=== PATIENT | male | born 1985 | race Caucasian/White ===

== ENCOUNTER 2016-12-07 00:04 | Emergency (ER) | payer BC ==
[~2016-12-07] VITALS: Ht 180.3 cm; Wt 86.5 kg
[2016-12-07 00:06] VITALS: TEMP 37.1; Ht 180.3 cm; Wt 86.5 kg
[2016-12-07] MEDS ORDERED: SODIUM CHLORIDE 0.9% 1000ML 1,000 ML IV STA (00:25)
--- NOTE | 2016-12-07 00:27 | EMERGENCY ROOM VISIT NOTE ---
History Report prepared by Garrickibe: Xiao Briggs Under the Supervision of: Dr. Edmund Harding M.D. First contact with patient: 00:16 Chief Complaint: CHEST PAIN Stated Complaint: CHEST PAIN,PAIN ON RIGHT SIDE,LWR BACK,KIDNEY History of Present Illness The patient is a 31 year old male who presents to the Emergency Room with complaints of right upper flank/RUQ pain. Began this morning. Minimal pain at rest though with movement of deep inspiration worse. Tylenol earlier improvement in symptoms. No nausea, vomiting, fevers, chills, syncope, swelling , rash, nor other symptoms. No history of PE/DVT, no family history, no recent surgeries, though he did travel to [place] 2 months ago. Admits Pneumonia 6-7 yrs ago without hospitalization. 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 Source of History: patient Onset: this morning Position: chest Timing: constant Modifying Factors (Worsening): breathing (deep), other (laying) Associated Symptoms: No nausea, No vomiting Note: pt denies passing out, calf pain, or swelling in legs Review of Systems See HPI for pertinent positives & negatives. A total of 10 systems reviewed and were otherwise negative. Past Medical & Surgical Medical Problems: (1) Pneumonia (2) Pneumonia Family History no pertinent family history stated Social History Smoking Status: Never Smoker Occupation Status: employed Current/Historical Medications Scheduled PRN Acetaminophen (Tylenol), 1,000 MG PO BID PRN for Pain Allergies Coded Allergies: No Known Allergies (Unverified , 12/07/16) Physical Exam Vital Signs Date Time Temp Pulse Resp B/P (MAP) Pulse Ox O2 Delivery O2 Flow Rate FiO2 12/07/16 05:05 68 18 127/78 99 12/07/16 04:20 64 17 113/77 99 Room Air 12/07/16 01:51 60 14 126/70 97 Room Air 12/07/16 00:53 72 12/07/16 00:30 Room Air 12/07/16 00:06 37.1 77 18 143/94 98 Room Air Physical Exam GENERAL: Patient is anxious appearing and in minimal distress. HEENT: No acute trauma, normocephalic atraumatic, mucous membranes moist, no nasal congestion, no scleral icterus. NECK: No stridor, no adenopathy, no meningismus, trachea is midline. LUNGS: No dyspnea. Clear to auscultation and equal bilaterally. No wheeze, no rhonchi. HEART: Regular rate and rhythm. No murmurs, rubs, gallops appreciated. ABDOMEN: Soft, nontender, bowel sounds positive, no masses appreciated, no peritonitis. BACK: No midline tenderness, vague right CVA ttp. EXTREMITIES: Normal motion all extremities, no cyanosis, no edema. NEUROLOGIC: Alert and oriented, no acute motor or sensory deficits, no focal weakness, cranial nerves grossly intact. SKIN: No rash, no jaundice, no diaphoresis. Medical Decision & Procedures ER Provider Diagnostic Interpretation: Radiology results and stated below per my review and radiologist interpretation: CHEST TWO VIEW X ray results are stated below per my interpretation: Chest: 1 view: No infiltrate, no effusion, normal cardiac border. US RUQ Mild hepatomegaly. Slightly dense liver may be fatty. Maybe trace perihepatic fluid. No cholelithiasis or acute cholecystitis. No biliary obstruction. Pancreas unremarkable. Right kidney unremarkable. Radiologist: Xavier Balderas Laboratory Results 12/07/16 00:20 Red Blood Count 5.05, Mean Corpuscular Volume 89.1, Mean Corpuscular Hemoglobin 32.5, Mean Corpuscular Hemoglobin Concent 36.4, Mean Platelet Volume 10.6, Neutrophils (%) (Auto) 57.3, Lymphocytes (%) (Auto) 29.3, Monocytes (%) (Auto) 11.0, Eosinophils (%) (Auto) 1.9, Basophils (%) (Auto) 0.3, Neutrophils # (Auto ) 5.96, Lymphocytes # (Auto) 3.05, Monocytes # (Auto) 1.14, Eosinophils # (Auto ) 0.20, Basophils # (Auto) 0.03 12/07/16 00:20 Test 12/07/16 00:20 12/07/16 00:25 White Blood Count 10.40 K/uL (4.8-10.8) Red Blood Count 5.05 M/uL (4.7-6.1) Hemoglobin 16.4 g/dL (14.0-18.0) Hematocrit 45.0 % (42-52) Mean Corpuscular Volume 89.1 fL (80-100) Mean Corpuscular Hemoglobin 32.5 pg (25-34) Mean Corpuscular Hemoglobin Concent 36.4 g/dl (32-36) Platelet Count 191 K/uL (130-400) Mean Platelet Volume 10.6 fL (7.4-10.4) Neutrophils (%) (Auto) 57.3 % Lymphocytes (%) (Auto) 29.3 % Monocytes (%) (Auto) 11.0 % Eosinophils (%) (Auto) 1.9 % Basophils (%) (Auto) 0.3 % Neutrophils # (Auto) 5.96 K/uL (1.4-6.5) Lymphocytes # (Auto) 3.05 K/uL (1.2-3.4) Monocytes # (Auto) 1.14 K/uL (0.11-0.59) Eosinophils # (Auto) 0.20 K/uL (0-0.5) Basophils # (Auto) 0.03 K/uL (0-0.2) RDW Standard Deviation 40.4 fL (36.4-46.3) RDW Coefficient of Variation 12.6 % (11.5-14.5) Immature Granulocyte % (Auto) 0.2 % Immature Granulocyte # (Auto) 0.02 K/uL (0.00-0.02) D-Dimer 220 ug/L FEU (0-500) Anion Gap 4.0 mmol/L (3-11) Est Creatinine Clear Calc Drug Dose 117.7 ml/min Estimated GFR () 121.4 Estimated GFR (Non- 104.8 BUN/Creatinine Ratio 15.3 (10-20) Calcium Level 9.3 mg/dl (8.5-10.1) Total Bilirubin 1.2 mg/dl (0.2-1) Direct Bilirubin 0.2 mg/dl (0-0.2) Aspartate Amino Transf (AST/SGOT) 11 U/L (15-37) Alanine Aminotransferase (ALT/SGPT) 25 U/L (12-78) Alkaline Phosphatase 67 U/L (45-117) Total Protein 8.3 gm/dl (6.4-8.2) Albumin 4.3 gm/dl (3.4-5.0) Lipase 340 U/L (73-393) Urine Color YELLOW Urine Appearance CLEAR (CLEAR) Urine pH 7.0 (4.5-7.5) Urine Specific [place] 1.021 (1.000-1.030) Urine Protein NEG (NEG) Urine Glucose (UA) NEG (NEG) Urine Ketones NEG (NEG) Urine Occult Blood NEG (NEG) Urine Nitrite NEG (NEG) Urine Bilirubin NEG (NEG) Urine Urobilinogen NEG (NEG) Urine Leukocyte Esterase NEG (NEG) Urine WBC (Auto) 1-5 /hpf (0-5) Urine RBC (Auto) 0-4 /hpf (0-4) Urine Hyaline Casts (Auto) 0 /lpf (0-5) Urine Epithelial Cells (Auto) 0-5 /lpf (0-5) Urine Bacteria (Auto) NEG (NEG) Laboratory results as reviewed by me. Medications Administered Medications (Trade) Dose Ordered Sig/Nafisa Route Start Time Stop Time Status Last Admin Dose Admin Sodium Chloride 1,000 ml @ 999 mls/hr Q1H1M STAT IV 12/07/16 00:25 12/07/16 01:25 DC 12/07/16 00:41 999 MLS/HR Ketorolac Tromethamine (Toradol Inj) 30 mg NOW STAT IV 12/07/16 04:52 12/07/16 04:53 DC 12/07/16 05:02 30 MG ED Course 0007: The patient was evaluated in room A4B. A complete history and physical exam was performed. 0025: Sodium Chloride 1000 ml @ 999 mls/hr. 0028: The patient states he is feeling fine. We discussed further imaging and he is agreeable to a US of his Liver and RUQ 0425: The patient notes he is still slightly uncomfortable. 0451: The patient is feeling better. We discussed his US findings. The patient is ready to be discharged. I suggested he follow up with his PCP for follow-up testing in one week. 0452: Toradol Inj 30 mg IV. 0455: Reevaluated the patient. Discussed results and discharge instructions: He verbalized understanding and agreement. The patient is ready for discharge. Medical Decision Differential: Cholecystitis, Gallbladder disfunction, Pneumonia, Hepatic Disfunction, PE, Gastritis/PUD, Renal Colic, Pancreatitis, Aortic Pathology, amongst other pathologies entertained. 31 yr old male with pleuritic RUQ abdominal pain. Recent travel to [place] but otherwise not other PE risk factors nor are vitals abnormal. With Dimer negative I do not feel this is PE. Lungs clear and CXR is unremarkable. Pain is not normal for renal colic and with no blood in urine and US without hydro I do not feel this is stone. LFTs with just faint bump in bili thus figured with location of pain would get RUQ US. Liver mildly enlarged with fatty infiltrate and possibly trace fluid jared-hepatic. He has no peritonitis nor findings consistent with surgical abdomen thus I do not feel that this is free fluid from rest of abdomen. He does not have elevated AST/ALT and thus I do not feel it is acute hepatitis. I suspect some viral infection/inflammation. No epigastric pain, and while he has history of GERD, I do not believe that this episode if related to PUD/gastritis. No evidence Cholecystitis on US. With essentially normal labs, benign exam and his findings I do not feel that CT scan benefits outweigh the skilled nursing risks of such a study at this time. We discussed the plan for monitoring at home over the next 24 hours and if worsening pain, syncope, fevers, etc return immediately and if no improvement RTED for further evaluation. Medication Reconcilliation Current Medication List: was personally reviewed by me Blood Pressure Screening Patient's blood pressure: Normal blood pressure Impression Primary Impression: RUQ abdominal pain Additional Impression: hepatomegaly mild Scribe Attestation The scribe's documentation has been prepared under my direction and personally reviewed by me in its entirety. I confirm that the note above accurately reflects all work, treatment, procedures, and medical decision making performed by me. Departure Information Dispostion Home / Self-Care Referrals No Doctor, Assigned (PCP) Forms HOME CARE DOCUMENTATION FORM, IMPORTANT VISIT INFORMATION Patient Instructions [facility] Additional Instructions Labs and Ultrasound were negative for any acute findings. Your Liver US did reveal some mild enlargement of liver with possibility of a small amount of fluid around it. You should discuss this with your primary provider for possible repeat testing. If worsening or no improvement in next 24-48 hours it is advised you return to ED for further evaluation. If fevers, vomiting, severe pain, passing out, or other concerns, return immediately or call 911. Problem Qualifiers
[2016-12-07] MEDS ORDERED: ACET-1256 PO (00:28)
[2016-12-07 00:36] LABS: BASO % 0.3 %; BASO ABS # 0.03 K/uL (0-0.2); COMPLETE YES; EOS % 1.9 %; IG% 0.2 %; LYMPH % 29.3 %; LYMPH ABS # 3.05 K/uL (1.2-3.4); MEAN CELL VOLUME 89.1 fL (80-100); MEAN CORPUSCULAR HEMOGLOBIN 32.5 pg (25-34); MEAN CORPUSCULAR HGB CONC 36.4 g/dl (32-36); MEAN PLATELET VOLUME 10.6 fL (7.4-10.4); NEUT % 57.3 %; PLATELET COUNT 191 K/uL (130-400); RED BLOOD COUNT 5.05 M/uL (4.7-6.1)
[2016-12-07 00:54] LABS: URINE APPEARANCE CLEAR (CLEAR); URINE BILIRUBIN NEG (NEG); URINE COLOR YELLOW; URINE EPITHELIAL CELL AUTO 0-5 /lpf (0-5); URINE NITRITE NEG (NEG); URINE SPECIFIC GRAVITY 1.021 (1.000-1.030); UROBILINOGEN NEG (NEG); ZZUR CULT IF INDIC CLEAN CATCH NO
[2016-12-07 00:59] LABS: BUN/CREATININE RATIO 15.3 (10-20); CALCIUM 9.3 mg/dl (8.5-10.1); CREATININE 0.95 mg/dl (0.60-1.40); POTASSIUM 3.5 mmol/L (3.5-5.1)
[2016-12-07 01:08] LABS: MANUAL MICROSCOPIC REQUIRED? NO; REVIEW REQ? NO
[2016-12-07] MEDS ORDERED: KETOROLAC TROMETHAMINE 30 MG/ML VIAL IV STA (04:52)
[2016-12-07 05:05] VITALS: BP 127/78; PULSE 68; O2SAT 99
--- NOTE | 2016-12-07 06:42 | DIAGNOSTIC IMAGING REPORT ---
CHEST 2 VIEWS ROUTINE HISTORY: 31 years-old Male right lower chest pain with deep breath COMPARISON: None available TECHNIQUE: Frontal and lateral views of the chest FINDINGS: Cardiomediastinal and hilar silhouettes are within normal limits. There is no pneumothorax, large pleural effusion or focal airspace consolidation. Inferior costophrenic angles are not imaged on the frontal view. Bones appear grossly intact. IMPRESSION: No acute cardiopulmonary process. The above report was generated using voice recognition software. It may contain grammatical, syntax or spelling errors. Electronically signed by: Sai Kam M.D. 12/07/2016 6:41 AM Dictated Date/Time: 12/07/2016 6:40 AM
--- NOTE | 2016-12-07 07:31 | DIAGNOSTIC IMAGING REPORT ---
ABDOMINAL ULTRASOUND, RIGHT UPPER QUADRANT HISTORY: RUQ pain, radiating to back. COMPARISON: None. FINDINGS: Pancreas: The pancreas demonstrates a normal echotexture. Liver: Mildly enlarged measuring 21 cm in length. No hepatic masses. Trace perihepatic fluid. Gallbladder: No gallbladder wall thickening. No gallstones. CBD: 4 mm. Right kidney: No hydronephrosis. IMPRESSION: Mild hepatomegaly. Trace perihepatic fluid. Normal gallbladder. Electronically signed by: Hadley Nguyễn M.D. 12/07/2016 7:29 AM Dictated Date/Time: 12/07/2016 7:28 AM
== END 2016-12-07 05:06 | disposition home or self-care (01) ==
LOC: C.EDB 00:05 → C.EDA 05:06
DX: R10.11 Right upper quadrant pain (principal); R16.0 Hepatomegaly, not elsewhere classified; Z87.01 Personal history of pneumonia (recurrent); K21.9 Gastro-esophageal reflux disease without esophagitis